=== PATIENT | male | born 1945 | race Hispanic/Latino ===

== ENCOUNTER → 2018-08-28 | Outpatient (CLI) | payer OTHER ==
[~2018-08-28] MED LIST: AEC81 PO; AMLO5TAB9 PO; ATOR20TA65 PO; BUPR-47 PO; CEFD300C3 PO; CILO100T PO; CLOP75TA32 PO; GABA-531 PO; LISI-617 PO; METF-446 PO; SIMV40TA5 PO; SPIR25TA6 PO; TAMS0.4C32 PO
== END | disposition home or self-care (01) ==
LOC: SHCH 07:47
PROVIDERS: ATTEND Internal Medicine Cardiovascular Disease
DX: I08.3 Combined rheumatic disorders of mitral, aortic and tricuspid valves (principal); I65.23 Occlusion and stenosis of bilateral carotid arteries; I25.10 Atherosclerotic heart disease of native coronary artery without angina pectoris; I27.20 Pulmonary hypertension, unspecified
CPT/HCPCS: 93306; 93880

== ENCOUNTER → 2018-09-09 | Outpatient (CLI) | payer OTHER ==
[2018-09-09 09:17] LABS: CREATININE 1.4 mg/dL (0.5-1.5)
== END | disposition home or self-care (01) ==
LOC: LAB 08:45
PROVIDERS: ATTEND Internal Medicine Cardiovascular Disease
DX: I73.9 Peripheral vascular disease, unspecified (principal)
CPT/HCPCS: 36415; 82565; 84520

== ENCOUNTER → 2018-09-11 | Outpatient (CLI) | payer OTHER ==
[~2018-09-11] MED LIST changes: +IOHEXOL 350 MG/ML 100ML INFUS..BTL IV ONE; +IOHEXOL-350 50ML VIAL IV ONE
== END | disposition home or self-care (01) ==
LOC: RAH 07:26
PROVIDERS: ATTEND Internal Medicine Cardiovascular Disease
DX: I70.293 Other atherosclerosis of native arteries of extremities, bilateral legs (principal); K55.1 Chronic vascular disorders of intestine; I70.202 Unspecified atherosclerosis of native arteries of extremities, left leg; K44.9 Diaphragmatic hernia without obstruction or gangrene; M47.815 Spondylosis without myelopathy or radiculopathy, thoracolumbar region; I70.0 Atherosclerosis of aorta
CPT/HCPCS: 75635; Q9967 ×2

== ENCOUNTER → 2019-05-25 | Outpatient (CLI) | payer OTHER ==
[~2019-05-25] MED LIST changes: -IOHEXOL 350 MG/ML 100ML INFUS..BTL IV ONE; -IOHEXOL-350 50ML VIAL IV ONE; +SIMV-46 PO; -SIMV40TA5 PO
== END | disposition home or self-care (01) ==
LOC: SHCH 10:18
PROVIDERS: ATTEND Internal Medicine Cardiovascular Disease
DX: R01.1 Cardiac murmur, unspecified (principal); I10 Essential (primary) hypertension; I65.23 Occlusion and stenosis of bilateral carotid arteries
CPT/HCPCS: 93306; 93880

== ENCOUNTER 2019-07-01 16:42 | Inpatient (IN) | payer OTHER ==
[~2019-07-01] VITALS: Ht 172.7 cm; Wt 84.2 kg
[2019-07-01 17:39] LABS: BASOPHILS % (AUTO) 0.4 % (0.0-5.0); EOSINOPHILS % (AUTO) 4.2 % (0.0-8.0); LYMPHOCYTES % (AUTO) 23.5 % (21.0-51.0); MEAN CORPUSCULAR HEMOGLOBIN 29.6 pg (27.0-33.0); MEAN CORPUSCULAR HGB CONC 33.5 g/dL (32.0-36.0); MEAN CORPUSCULAR VOLUME 88.3 fL (79-99); MONOCYTES % (AUTO) 7.9 % (3.0-13.0); NEUTROPHILS % (AUTO) 63.7 % (40.0-77.0); PLATELET COUNT (AUTO) 185 K/uL (130-400); RED BLOOD CELL COUNT(AUTO) 4.53 MIL/uL (4.50-6.20); RED CELL DISTRIBUTION WIDTH 13.2 % (11.0-15.5); WHITE BLOOD COUNT (AUTO) 9.4 K/uL (4.8-10.8)
[2019-07-01 17:55] LABS: CREATININE 1.3 mg/dL (0.5-1.5); POTASSIUM 3.7 mmol/L (3.5-5.1)
[2019-07-01 17:58] LABS: INR 0.92 (0.85-1.15); PARTIAL THROMBOPLASTIN TIME 25.4 SEC (26.3-35.5)
[2019-07-01 18:00] LABS: ALBUMIN 3.7 g/dL (3.5-5.0); BILIRUBIN,TOTAL 0.4 mg/dL (0.2-1.0); TOTAL PROTEIN, SERUM 7.3 g/dL (6.0-8.3)
[2019-07-01] MEDS ORDERED: HYDRALAZINE HCL 20 MG/ML VIAL ONE (18:56)
[2019-07-01] MEDS ORDERED: ONDANSETRON HCL 4 MG/2 ML VIAL IV PRN (19:00)
[2019-07-01] MEDS ORDERED: ACETAMINOPHEN 325 MG TAB PO PRN ×2 (19:00)
[2019-07-01] MEDS ORDERED: NITROGLYCERIN 0.4 MG SL TAB SL PRN (19:00)
[2019-07-01] MEDS ORDERED: LACTULOSE 20 GM/30 ML UDCUP PO PRN (19:00)
[2019-07-01] MEDS: INSULIN HUMULIN R 100 UNIT/ML 3ML SQ SCH (21:00)
[2019-07-01] MEDS: METOPROLOL TARTRATE 25 MG TAB PO SCH (21:00)
[2019-07-01] MEDS: ATORVASTATIN CALCIUM 20 MG TABLET PO SCH (21:00)
[2019-07-01 21:15] LABS: APPEARANCE,URINE Clear (CLEAR); BILIRUBIN,URINE Negative (NEGATIVE); COLOR,URINE Yellow (YELLOW); GLUCOSE, URINE (UA) >=1000 mg/dL (NEGATIVE); KETONES,URINE Negative (NEGATIVE); LEUKOCYTE ESTERASE ,URINE Trace (NEGATIVE); NITRATE,URINE Positive (NEGATIVE); OCCULT BLOOD,URINE Negative (NEGATIVE); PH,URINE 6.5 (5.0-8.0); PROTEIN,URINE POS 2+ mg/dL (NEGATIVE)
[2019-07-01 21:27] LABS: BACTERIA,URINE Moderate /HPF (None Seen); RBC,URINE 0-1 /HPF (0-1); SQUAMOUS EPITHELIAL CELL,UR Few /HPF (0-2)
[2019-07-01] MEDS ORDERED: ATORVASTATIN CALCIUM 40 MG TABLET ONE (21:53)
[2019-07-01] MEDS ORDERED: METOPROLOL TARTRATE 25 MG TAB ONE (21:53)
[2019-07-01 23:00] VITALS: BP 156/65
[2019-07-01] MEDS ORDERED: CEFTRIAXONE SODIUM 1 GM IVP SCH (23:00)
[2019-07-02] VITALS (8 sets, daily range): BP systolic 129–155; BP diastolic 41–65
[2019-07-02] MEDS ORDERED: PANT40TA25 PO (00:03)
[2019-07-02] MEDS ORDERED: CILO100T PO (00:03)
[2019-07-02] MEDS ORDERED: FERR325T29 PO (00:03)
[2019-07-02] MEDS ORDERED: IBUP-2784 PO (00:03)
[2019-07-02] MEDS ORDERED: FOLI0.4T2 PO (00:03)
[2019-07-02] MEDS ORDERED: LISI-613 PO (00:03)
[2019-07-02] MEDS ORDERED: CYAN250010 PO (00:03)
[2019-07-02] MEDS ORDERED: GABA-531 PO (00:03)
[2019-07-02] MEDS ORDERED: METO50TA18 PO (00:03)
[2019-07-02 04:43] LABS: BASOPHILS % (AUTO) 0.6 % (0.0-5.0); EOSINOPHILS % (AUTO) 4.1 % (0.0-8.0); HEMATOCRIT 37.7 % (42-54); LYMPHOCYTES % (AUTO) 23.7 % (21.0-51.0); MEAN CORPUSCULAR HEMOGLOBIN 29.5 pg (27.0-33.0); MEAN CORPUSCULAR HGB CONC 33.4 g/dL (32.0-36.0); MEAN CORPUSCULAR VOLUME 88.3 fL (79-99); MONOCYTES % (AUTO) 8.7 % (3.0-13.0); NEUTROPHILS % (AUTO) 62.5 % (40.0-77.0); PLATELET COUNT (AUTO) 185 K/uL (130-400); RED BLOOD CELL COUNT(AUTO) 4.27 MIL/uL (4.50-6.20); RED CELL DISTRIBUTION WIDTH 13.3 % (11.0-15.5); WHITE BLOOD COUNT (AUTO) 9.5 K/uL (4.8-10.8)
[2019-07-02 04:51] LABS: CREATININE 1.2 mg/dL (0.5-1.5); POTASSIUM 3.7 mmol/L (3.5-5.1)
[2019-07-02] MEDS: INSULIN HUMULIN R 100 UNIT/ML 3ML SQ SCH ×4 (06:20→21:56)
[2019-07-02] MEDS ORDERED: SODIUM CHLORIDE 0.9% 1000ML 1,000 ML IV SCH ×2 (08:00→12:55)
[2019-07-02] MEDS: METOPROLOL TARTRATE 25 MG TAB PO SCH (10:01)
[2019-07-02] MEDS: ASPIRIN 325 MG TABLET PO SCH (10:01)
[2019-07-02] MEDS: FAMOTIDINE/PF 20 MG/2 ML VIAL IV SCH (10:01)
[2019-07-02] MEDS ORDERED: HEPARIN SODIUM 1000UNIT/ML 10ML VIAL ONE (11:40)
[2019-07-02] MEDS ORDERED: SODIUM BICARB 50MEQ 50ML VIAL ONE (11:40)
[2019-07-02] MEDS ORDERED: MIDAZOLAM HCL 1 MG/ML 2ML VIAL ONE (11:41)
[2019-07-02] MEDS ORDERED: MEPERIDINE-PF 25 MG/ML SYG ONE (11:41)
[2019-07-02] MEDS ORDERED: NITROGLYCERIN 2 MG/VIAL VIAL IV ONE (11:41)
[2019-07-02] MEDS ORDERED: IOHEXOL-350 50ML VIAL IV ONE (11:41)
[2019-07-02] MEDS ORDERED: LIDOCAINE HCL 2% 20ML ONE (11:41)
[2019-07-02] MEDS ORDERED: IOHEXOL 350 MG/ML 100ML INFUS..BTL IV ONE (11:41)
[2019-07-02] MEDS ORDERED: CARV6.25 PO (13:15)
[2019-07-02] MEDS ORDERED: AMLO5TAB9 PO (13:15)
[2019-07-02] MEDS: CARVEDILOL 6.25 MG TABLET PO SCH (13:15)
[2019-07-02] MEDS: FERROUS SULFATE 325 MG TABLET.DR PO SCH (14:02)
[2019-07-02] MEDS: CEFTRIAXONE SODIUM 1 GM IVP SCH ×2 (14:02→21:47)
[2019-07-02] MEDS: CYANOCOBALAMIN (VITAMIN B-12) 1,000 MCG TABLET PO SCH (14:02)
--- NOTE | 2019-07-02 17:48 | NUR ---
cm note met with patient and states resides at home alone, is independent with adls and ambulation. no dme. no services. states feels safe to return home. states his daughters will assist him for any needs at home. Addendum: 07/02/19 at 1749 by JO MELENDEZ CM Amended: Links added.
[2019-07-02] MEDS ORDERED: SIMVASTATIN 20 MG TABLET PO SCH (21:00)
[2019-07-02] MEDS ORDERED: METOPROLOL TARTRATE 50 MG TAB PO SCH (21:00)
[2019-07-02] MEDS: AMLODIPINE BESYLATE 5 MG TAB PO SCH (21:47)
[2019-07-02] MEDS: TAMSULOSIN HCL 0.4 MG CAP.ER.24H PO SCH (21:47)
[2019-07-02] MEDS: ATORVASTATIN CALCIUM 20 MG TABLET PO SCH (21:47)
[2019-07-03] VITALS (7 sets, daily range): BP systolic 108–142; BP diastolic 35–66
[2019-07-03] MEDS: CARVEDILOL 6.25 MG TABLET PO SCH ×2 (02:53→13:00)
[2019-07-03 05:52] LABS: BASOPHILS % (AUTO) 0.5 % (0.0-5.0); EOSINOPHILS % (AUTO) 3.4 % (0.0-8.0); HEMATOCRIT 39.1 % (42-54); LYMPHOCYTES % (AUTO) 21.1 % (21.0-51.0); MEAN CORPUSCULAR HEMOGLOBIN 30.1 pg (27.0-33.0); MEAN CORPUSCULAR VOLUME 88.5 fL (79-99); MONOCYTES % (AUTO) 7.8 % (3.0-13.0); NEUTROPHILS % (AUTO) 66.8 % (40.0-77.0); PLATELET COUNT (AUTO) 187 K/uL (130-400); RED BLOOD CELL COUNT(AUTO) 4.42 MIL/uL (4.50-6.20); RED CELL DISTRIBUTION WIDTH 13.1 % (11.0-15.5); WHITE BLOOD COUNT (AUTO) 9.1 K/uL (4.8-10.8)
[2019-07-03 05:59] LABS: HEMOGLOBIN A1C 9.5 % (4.0-6.0)
[2019-07-03 06:07] LABS: CARBON DIOXIDE 28 mmol/L (21-32); CHLORIDE 102 mmol/L (101-111); CREATININE 1.2 mg/dL (0.5-1.5); GLOMERULAR FILTR. RATE CALC 63 mL/min (>60); GLUCOSE,RANDOM 165 mg/dL (70-105); PHOSPHORUS 3.4 mg/dL (2.5-4.9); POTASSIUM 3.8 mmol/L (3.5-5.1); SODIUM SERUM 138 mmol/L (136-145); UREA NITROGEN, BLOOD 18 mg/dL (7-18)
[2019-07-03] MEDS: INSULIN HUMULIN R 100 UNIT/ML 3ML SQ SCH ×4 (07:30→22:56)
--- NOTE | 2019-07-03 08:45 | NUR ---
SPOKE WITH DAUGHTER AND WAS CONCERNED BECAUSE NURSING STAFF HAD NOT BEEN IN PATIENT'S ROOM. NURSING STAFF HAVE GONE INTO ROOM AND PT WAS ASLEEP AND FOOD TRAYS HERE BEING DISTRIBUTED AND WILL WAKE PT UP FOR ASSESSMENT. PT IS AWAITING DOCTOR TO VISIT AND HOPING TO BE DISCHARGED. DAUGHTER HAD STATED THAT SHE WOULD BE THE ONE PICKING THE PATIENT UP WHEN DISCHARGED.
[2019-07-03] MEDS ORDERED: LISINOPRIL 20 MG TABLET PO SCH (09:00)
[2019-07-03] MEDS: PANTOPRAZOLE SODIUM 40 MG TABLET.DR PO SCH (09:28)
[2019-07-03] MEDS: FERROUS SULFATE 325 MG TABLET.DR PO SCH (09:29)
[2019-07-03] MEDS: GABAPENTIN 300 MG CAPSULE PO SCH (09:29)
[2019-07-03] MEDS: CYANOCOBALAMIN (VITAMIN B-12) 1,000 MCG TABLET PO SCH (09:30)
[2019-07-03] MEDS: AMLODIPINE BESYLATE 5 MG TAB PO SCH ×2 (09:30→22:48)
[2019-07-03] MEDS: LISINOPRIL 2.5 MG TABLET PO SCH (09:31)
[2019-07-03] MEDS: FAMOTIDINE/PF 20 MG/2 ML VIAL IV SCH (09:33)
[2019-07-03] MEDS: CEFTRIAXONE SODIUM 1 GM IVP SCH (09:33)
[2019-07-03] MEDS: ASPIRIN 325 MG TABLET PO SCH (09:33)
[2019-07-03] MEDS: FOLIC ACID 1 MG TABLET PO SCH (09:38)
[2019-07-03] MEDS ORDERED: MAGNESIUM 2GM PREMIX 50ML 50 ML IV SCH (09:45)
--- NOTE | 2019-07-03 11:45 | NUR ---
DR. BETTS AND ADVISED PT THAT HE WOULD BE DISCHARGED AFTER HE WOULD BE FITTED WITH THE LIFE VEST. POWERHOUSE OPERATOR HERE AND SIGNATURE AND ORDER NOTED FOR LIFE VEST. SOFIA MOORE SPOKE WITH DAUGHTER AND ADVISED HER THE PLAN OF CARE.
--- NOTE | 2019-07-03 12:00 | NUR ---
cm note spoke to nilda with [employer], and states that not sure if [facility] [place]. but states if pt has medicare can use it and it will help to expedite the process. spoke to pt in room and states to call her daughter Bg Osborn call made to her on speaker as pt requested. and daughter requests that at this time she only wishes to go through [employer]. and pt in agreement. so, referral faxed to [facility] with [facility] info
--- NOTE | 2019-07-03 15:00 | NUR ---
STILL WAITING FOR APPROVAL OF LIFE VEST FROM [facility] OR INSURANCE COMPANY. [employer] METHODS ANALYST IS WORKING ON THE LIFE VEST ORDER TO SEND PT HOME.
--- NOTE | 2019-07-03 17:34 | NUR ---
cm note spoke to nilda with [employer], and states that [employer] has denied [employer]vest for now, due to [employer] will have to give approval until friday.but states if pt has medicare can use it at this time to expedite referral sooner. states she has spoken to pt in the room and in agreement, this cm verified with pt and states he is in agreement that we use pt's medicare and requests that I call daughter Bg Radford. call made to Daughter and she states she is in agreement with using pt's medicare # and she provided Medicare # . I also provided daughter with phone # for [employer] rep Nilda [phone] for any further questions. , referral info with medicare # faxed to [employer]. Per nilda will let us know when approved. possibly may not get approved until tomorrow.
[2019-07-03] MEDS: TAMSULOSIN HCL 0.4 MG CAP.ER.24H PO SCH (22:48)
[2019-07-03] MEDS: ATORVASTATIN CALCIUM 20 MG TABLET PO SCH (22:48)
[2019-07-04] MEDS: CARVEDILOL 6.25 MG TABLET PO SCH ×2 (01:15→14:23)
[2019-07-04 03:52] VITALS: BP 125/39
[2019-07-04 06:09] LABS: CREATININE 1.3 mg/dL (0.5-1.5); MAGNESIUM 2.1 mg/dL (1.80-2.40); POTASSIUM 3.7 mmol/L (3.5-5.1)
[2019-07-04] MEDS: PANTOPRAZOLE SODIUM 40 MG TABLET.DR PO SCH (06:31)
[2019-07-04] MEDS: INSULIN HUMULIN R 100 UNIT/ML 3ML SQ SCH ×2 (06:33→12:29)
[2019-07-04 07:30] VITALS: BP 139/60
[2019-07-04] MEDS: LISINOPRIL 2.5 MG TABLET PO SCH (09:28)
[2019-07-04] MEDS: CYANOCOBALAMIN (VITAMIN B-12) 1,000 MCG TABLET PO SCH (09:29)
[2019-07-04] MEDS: AMLODIPINE BESYLATE 5 MG TAB PO SCH (09:29)
[2019-07-04] MEDS: GABAPENTIN 300 MG CAPSULE PO SCH (09:29)
[2019-07-04] MEDS: ASPIRIN 325 MG TABLET PO SCH (09:29)
[2019-07-04] MEDS: FERROUS SULFATE 325 MG TABLET.DR PO SCH (09:29)
[2019-07-04] MEDS: FAMOTIDINE/PF 20 MG/2 ML VIAL IV SCH (09:29)
[2019-07-04] MEDS: FOLIC ACID 1 MG TABLET PO SCH (09:36)
[2019-07-04] MEDS ORDERED: ASPIRIN 81 MG EC TAB PO SCH (09:54)
[2019-07-04 11:30] VITALS: BP 169/74
--- NOTE | 2019-07-04 13:00 | NUR ---
REP FROM [employer] HERE AND PLACING THE VEST ON PT. DR. MORALES ADVISED OF THE PATIENT'S VEST HERE AND NEEDED DISCHARGED ORDERS.
[2019-07-04] MEDS ORDERED: LISI2.5T2 PO (13:06)
[2019-07-04] MEDS ORDERED: ATOR40TA69 PO (13:22)
--- NOTE | 2019-07-04 13:26 | NUR ---
cm note spoke to nilda song from [employer], states has been approved for the lifevest, and someone should be at the hospital shortly to deliver the vest. also , states that she updated pt'spenser on this. also recevied call from primary nurse that someone called and informed her that life vest should be delivered in about an hour or so.
[2019-07-04 14:23] VITALS: BP 169/84
--- NOTE | 2019-07-04 15:10 | NUR ---
PT WAS DISCHARGED TO THE FRONT ER AREA TAKEN BY W/C AND TO BE TAKEN HOME BY DAUGHTER AND [employer] IS PLACE.
== END 2019-07-04 15:15 | disposition home or self-care (01) | DRG 287 ==
LOC: EDH 16:42 → EDHIP 16:43 → 4AH 22:38
PROVIDERS: ADMIT Internal Medicine; ATTEND Internal Medicine
PROC: 4A023N8 Measurement of Cardiac Sampling and Pressure, Bilateral, Percutaneous Approach (ICD-10-PCS; principal; 2019-07-02)
PROC: B213YZZ Fluoroscopy of Multiple Coronary Artery Bypass Grafts using Other Contrast (ICD-10-PCS; 2019-07-02)
PROC: B211YZZ Fluoroscopy of Multiple Coronary Arteries using Other Contrast (ICD-10-PCS; 2019-07-02)
PROC: B218YZZ Fluoroscopy of Left Internal Mammary Bypass Graft using Other Contrast (ICD-10-PCS; 2019-07-02)
PROC: B41FYZZ Fluoroscopy of Right Lower Extremity Arteries using Other Contrast (ICD-10-PCS; 2019-07-02)
DX: T82.855A Stenosis of coronary artery stent, initial encounter (principal); N39.0 Urinary tract infection, site not specified; I13.0 Hypertensive heart and chronic kidney disease with heart failure and stage 1 through stage 4 chronic kidney disease, or unspecified chronic kidney disease; I50.42 Chronic combined systolic (congestive) and diastolic (congestive) heart failure; I25.10 Atherosclerotic heart disease of native coronary artery without angina pectoris; I45.9 Conduction disorder, unspecified; E78.5 Hyperlipidemia, unspecified; E11.22 Type 2 diabetes mellitus with diabetic chronic kidney disease; Z95.1 Presence of aortocoronary bypass graft; I16.0 Hypertensive urgency; I25.5 Ischemic cardiomyopathy; N18.9 Chronic kidney disease, unspecified; N40.0 Benign prostatic hyperplasia without lower urinary tract symptoms; E11.51 Type 2 diabetes mellitus with diabetic peripheral angiopathy without gangrene; Z79.82 Long term (current) use of aspirin; Z82.0 Family history of epilepsy and other diseases of the nervous system; Z82.3 Family history of stroke; Z82.49 Family history of ischemic heart disease and other diseases of the circulatory system; Y83.8 Other surgical procedures as the cause of abnormal reaction of the patient, or of later complication, without mention of misadventure at the time of the procedure; Y92.89 Other specified places as the place of occurrence of the external cause; Z82.5 Family history of asthma and other chronic lower respiratory diseases; Z83.3 Family history of diabetes mellitus; Z95.810 Presence of automatic (implantable) cardiac defibrillator
CPT/HCPCS: 36415; 70450; 71045; 80048; 80053; 81001; 82550; 82948; 83036; 83735; 84100; 84145; 84484; 85025; 85610; 85730; 87077; 87088; 87186; 93005; 93455; 99156; 99157; C1894; G0378; J0360; J0696; J1644; J1815; J2175; J2250; J3475; J3490; Q9967

== ENCOUNTER 2020-09-16 11:37 | Emergency (ER) | payer OTHER ==
[~2020-09-16] VITALS: Ht 172.7 cm; Wt 86.2 kg
[~2020-09-16 11:37] MED LIST changes: +AMLO-257 PO; -AMLO5TAB9 PO; -ATOR20TA65 PO; +ATOR40TA69 PO; -BUPR-47 PO; +CARV6.25 PO; -CEFD300C3 PO; +CYAN250010 PO; +FOLI0.4T6 PO; +INSU100V12 SQ; -LISI-617 PO; +LISI2.5T2 PO; +PANT40TA54 PO; -SIMV-46 PO; -SPIR25TA6 PO
[2020-09-16 11:40] VITALS: BP 135/71
[2020-09-16 12:44] VITALS: BP 154/44
[2020-09-16 12:44] LABS: BASOPHILS % (AUTO) 0.7 % (0.0-5.0); EOSINOPHILS % (AUTO) 0.5 % (0.0-8.0); HEMATOCRIT 39.5 % (42-54); LYMPHOCYTES % (AUTO) 7.8 % (21.0-51.0); MEAN CORPUSCULAR HEMOGLOBIN 29.9 pg (27.0-33.0); MEAN CORPUSCULAR HGB CONC 34.2 g/dL (32.0-36.0); MEAN CORPUSCULAR VOLUME 87.6 fL (79-99); MONOCYTES % (AUTO) 10.3 % (3.0-13.0); NEUTROPHILS % (AUTO) 80.3 % (40.0-77.0); PLATELET COUNT (AUTO) 146 K/uL (130-400); RED BLOOD CELL COUNT(AUTO) 4.51 MIL/uL (4.50-6.20); RED CELL DISTRIBUTION WIDTH 13.1 % (11.0-15.5); WHITE BLOOD COUNT (AUTO) 9.4 K/uL (4.8-10.8)
[2020-09-16 12:48] LABS: CARBON DIOXIDE 27 mmol/L (21-32); CHLORIDE 98 mmol/L (101-111); CREATININE 1.3 mg/dL (0.5-1.5); GLOMERULAR FILTR. RATE CALC 58 mL/min (>60); GLUCOSE,RANDOM 219 mg/dL (70-105); POTASSIUM 4.2 mmol/L (3.5-5.1); SODIUM SERUM 135 mmol/L (136-145); UREA NITROGEN, BLOOD 19 mg/dL (7-18)
[2020-09-16 12:58] LABS: ALANINE AMINOTRANSFERASE 26 U/L (12-78); ALBUMIN 3.3 g/dL (3.5-5.0); ASPARTATE AMINOTRANSFERASE 24 U/L (10-37); CREATINE KINASE, TOTAL 63 U/L (21-232); MYOGLOBIN 55 ng/mL (10-92); TOTAL PROTEIN, SERUM 7.1 g/dL (6.0-8.3); TROPONIN I < 0.04 ng/mL (0.00-0.06)
[2020-09-16 13:12] LABS: B-TYPE NATRIURETIC PEPTIDE 129 pg/mL (0-100)
[2020-09-16] MEDS ORDERED: LIDOCAINE 5% TOPICAL PATCH TP ONE (13:30)
[2020-09-16] MEDS ORDERED: ACETAMINOPHEN 500 MG TABLET PO ONE (13:30)
[2020-09-16 14:45] VITALS: BP 166/48
[2020-09-16] MEDS ORDERED: NAPR500T6 PO (15:09)
[2020-09-16] MEDS ORDERED: LIDOP TP (15:09)
== END 2020-09-16 15:29 | disposition home or self-care (01) ==
LOC: EDH 11:37
DX: S09.90XA Unspecified injury of head, initial encounter (principal); M54.5 Low back pain; I10 Essential (primary) hypertension; E78.00 Pure hypercholesterolemia, unspecified; E11.9 Type 2 diabetes mellitus without complications; Z79.02 Long term (current) use of antithrombotics/antiplatelets; Z79.82 Long term (current) use of aspirin; Z79.899 Other long term (current) drug therapy; Z79.4 Long term (current) use of insulin; Z98.890 Other specified postprocedural states; W07.XXXA Fall from chair, initial encounter; Y93.89 Activity, other specified; Y92.89 Other specified places as the place of occurrence of the external cause; Y99.8 Other external cause status
CPT/HCPCS: 36415; 70450; 72131; 80053; 82550; 83874; 83880; 84484; 85025; 93005

== ENCOUNTER → 2021-04-23 | Outpatient (CLI) | payer OTHER ==
[~2021-04-23] MED LIST changes: +LIDOP TP; +LISI2.5T13 PO; -LISI2.5T2 PO; +NAPR500T6 PO
== END | disposition home or self-care (01) ==
LOC: SHCH 07:55
PROVIDERS: ATTEND Internal Medicine Cardiovascular Disease
DX: I73.9 Peripheral vascular disease, unspecified (principal); Z95.828 Presence of other vascular implants and grafts
CPT/HCPCS: 93925

== ENCOUNTER → 2023-05-14 | Outpatient (CLI) | payer OTHER ==
[~2023-05-14] MED LIST changes: -CILO100T PO; +CILO100T3 PO
== END | disposition home or self-care (01) ==
LOC: RAH 08:13
PROVIDERS: ATTEND Internal Medicine Cardiovascular Disease
DX: I08.3 Combined rheumatic disorders of mitral, aortic and tricuspid valves (principal); R09.89 Other specified symptoms and signs involving the circulatory and respiratory systems; I25.5 Ischemic cardiomyopathy; E78.5 Hyperlipidemia, unspecified; E11.9 Type 2 diabetes mellitus without complications; Z95.1 Presence of aortocoronary bypass graft; I11.9 Hypertensive heart disease without heart failure
CPT/HCPCS: 93306; 93880

== ENCOUNTER → 2023-08-28 | Outpatient (CLI) | payer OTHER ==
[~2023-08-28] MED LIST changes: +IOHEXOL 350 MG/ML 100ML INFUS..BTL IV ONE; +IOHEXOL-350 50ML VIAL IV ONE
== END | disposition home or self-care (01) ==
LOC: RAH 08:33
PROVIDERS: ATTEND Internal Medicine Cardiovascular Disease
DX: I70.203 Unspecified atherosclerosis of native arteries of extremities, bilateral legs (principal); M47.815 Spondylosis without myelopathy or radiculopathy, thoracolumbar region; I70.0 Atherosclerosis of aorta; K57.30 Diverticulosis of large intestine without perforation or abscess without bleeding; Z95.820 Peripheral vascular angioplasty status with implants and grafts
CPT/HCPCS: 75635; Q9967 ×2

== ENCOUNTER → 2023-08-29 | Outpatient (CLI) | payer OTHER ==
[~2023-08-29] MED LIST changes: -IOHEXOL 350 MG/ML 100ML INFUS..BTL IV ONE; -IOHEXOL-350 50ML VIAL IV ONE
== END | disposition home or self-care (01) ==
LOC: SHCH 08:18
PROVIDERS: ATTEND Internal Medicine Cardiovascular Disease
DX: I65.23 Occlusion and stenosis of bilateral carotid arteries (principal)
CPT/HCPCS: 93880